=== PATIENT | female | born 2005 | race Caucasian/White ===

== ENCOUNTER 2024-12-26 06:19 | Inpatient (IN) ==
[2024-12-26] MEDS ORDERED: NUBAIN INJ 20 MG AMP IVP PRN (06:46)
[2024-12-26] MEDS ORDERED: PITOCIN IVP ONE (06:46)
[2024-12-26] MEDS ORDERED: REGLAN INJ 10 MG VIAL IVP PRN (06:46)
[2024-12-26] MEDS: D5 1/2 NS 1,000 ML 1,000 ML IV SCH (07:00)
--- NOTE | 2024-12-26 07:18 | DR.OB ---
OB QUICK NOTE Assessment/Plan (1) Elective induction of labor planned: Assessment/Plan: L&D 12/26/24 at 7:10am S-No complaint. O-Afebrile,VSS [id number] with good LTV, +accel, no decel. CTX=mild, irregular CVX=3cm/75%/-1/VTX AROM with clear fluid. IUPC and FSE placed. A-IUP at 39 2/7 weeks for induction P-Begin pitocin induction F/U labs Anticipate
[2024-12-26] MEDS: OXYTOCIN 20 UNIT/1,000 ML-NS 20 UNIT/1,000 ML PLAST..BAG IV PRN (07:45)
[2024-12-26] MEDS: LR 1,000 ML IV 1,000 ML IV ONE (09:38)
[2024-12-26] MEDS: FENTANYL VIAL INJ 100 mcg ONE (10:16)
[2024-12-26] MEDS: NAROPIN EPIDURAL 0.2% 100 ML ONE (10:23)
[2024-12-26] MEDS: ZOFRAN INJ 4 MG VIAL IVP PRN (10:25)
[2024-12-26] MEDS: ZOFRAN INJ 4 MG VIAL ONE (10:32)
--- NOTE | 2024-12-26 12:19 | DR.OB ---
OB QUICK NOTE Assessment/Plan (1) Elective induction of labor planned: Assessment/Plan: L&D 12/26/24 at 12:15pm Pitocin=12mu/min. S-No complaint. s/p epidural. O-Afebrile,VSS [id number] with good LTV, +accel, no decel. CTX=q 1 1/2 min., about 45-60mmHg CVX=5cm/90%/-1/VTX A-IUP at 39 2/7 weeks for induction P-Cont. pitocin induction Anticipate
[2024-12-26] MEDS ORDERED: AMBIEN PO PRN (17:03)
[2024-12-26] MEDS ORDERED: DERMOPLAST PAIN RELIEF SPRAY TOP PRN (17:03)
[2024-12-26] MEDS ORDERED: MOTRIN TAB 800 MG PO PRN (17:03)
[2024-12-26] MEDS ORDERED: MILK OF MAGNESIA PO PRN (17:03)
--- NOTE | 2024-12-26 17:22 | DR.OB ---
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 Mother and in stable condition. Large caput noted, but patient making good progress. Head delivered over intact perineum. Nose and mouth bulb suctioned. No nuchal cord. Body delivered over intact perineum, but Eliza manuever needed. Cord clamped x 2 and cut. handed to attendant. Late meconium noted. Cord sent for gases. Placenta delivered spontaneously / intact / 3vessel cord. No CVX / vaginal / perineal tears noted. Viable male delivered by , VTX/OA, wt=8'12" and 2/8/9, stable to NBN. Mother stable to RR. ROD=[id number].
[2024-12-26] MEDS: OXYTOCIN 20 UNIT/1,000 ML-NS 20 UNIT/1,000 ML PLAST..BAG IV SCH (18:34)
[2024-12-26] MEDS: ADACEL or BOOSTRIX TDaP VACCINE IM ONE (18:45)
[2024-12-26] MEDS: MOTRIN TAB 800 MG PO PRN (18:46)
[2024-12-27 05:31] LABS: HEMOGLOBIN 10.9 g/dL (12.0-16.0)
[2024-12-27] MEDS: PRENATAL PLUS PO SCH (08:39)
[2024-12-27 16:52] VITALS: BP 134/78; PULSE 77; RESP 18; TEMP 97.7; O2SAT 99
== END 2024-12-27 18:00 | disposition home or self-care (01) | DRG 807 ==
LOC: LD 06:19 → MED/SURG 18:19
PROVIDERS: ADMIT Specialist; ATTEND Specialist
DX: Z3A.39 39 weeks gestation of pregnancy; O26.893 Other specified pregnancy related conditions, third trimester; Z37.0 Single live birth; O66.0 Obstructed labor due to shoulder dystocia